=== PATIENT | male | born 1950 | race Hispanic/Latino ===

== ENCOUNTER 2022-06-23 16:54 | Emergency (ER) | payer MEDICARE ==
[~2022-06-23] VITALS: Ht 165.1 cm; Wt 122.5 kg
[2022-06-23] MEDS ORDERED: BENZONATATE100 MG PO (19:02)
[2022-06-23] MEDS ORDERED: PROAIR HFA INH8.5 GM INH (19:02)
[2022-06-23] MEDS ORDERED: MUCINEX DM ER1 EACH PO (19:02)
== END 2022-06-23 19:13 | disposition home or self-care (01) ==
LOC: ER 17:08
DX: R05.9 Cough, unspecified (principal); J06.9 Acute upper respiratory infection, unspecified; Z20.822 Contact with and (suspected) exposure to COVID-19; R94.31 Abnormal electrocardiogram [ECG] [EKG]
CPT/HCPCS: 71045; 93005; 99283; U0002